=== PATIENT | male | born 1980 | race Caucasian/White ===

== ENCOUNTER 2020-08-29 08:48 | Emergency (ER) | payer OTHER, SELFPAY ==
[2020-08-29 08:49] VITALS: BP 130/90; PULSE 71; RESP 16; TEMP 36.8; O2SAT 100; BMI 23.6
--- NOTE | 2020-08-29 09:13 | EDS_ITS ---
HPI History of Present Illness Chief Complaint: Abd Pain Informant: patient Onset/Context/Timing Onset: Month(s) Current Severity: Mild Maximum Severity: Moderate Narrative Narrative: Patient presents with epigastric abdominal pain that has been ongoing for the last year. He states is gotten worse of the past couple of weeks. He does feel that there is a soft tissue mass in the upper abdomen is actually scheduled to be removed in early September. He thinks this is related. He does describe a burning sensation but no reflux up into his chest. Patient states has been taking some natural medication as well as some acid reducers. He denies vomiting or diarrhea. No fever or chills. He has never had prior abdominal surgery. PFSH PFSH no medical history Home Medications tramadol 50 mg PO Q8H PRN #14 tab 08/29/20 [Rx Last Taken Unknown] Allergy/AdvReac Type Severity Reaction Status Date / Time No Known Allergies Allergy Verified 08/29/20 08:49 Social History Smoking Status: Never smoker ROS ROS ED Constitutional Constitutional ED: Denies chills or fever(s) Eyes Eyes: Denies change in vision ENT ENT ED: Denies sore throat Cardiovascular Cardiovascular: Denies chest pain Respiratory/Chest Respiratory/Chest: Denies cough or dyspnea Gastrointestinal Gastrointestinal: Reports abdominal pain; Denies diarrhea, nausea or vomiting Genitourinary Genitourinary ED: Denies dysuria Musculoskeletal Musculoskeletal: Denies back pain Integumentary Denies rash Neurologic Neurologic: Denies headache(s) or weakness Psychiatric Psychiatric: Denies anxiety or depression Endocrine Endocrinology: Denies polydipsia or polyuria Allergic/Immunologic Allergic/Immunologic ED: Denies urticaria EXAM Physical Exam Const Vital Signs: 08/29/20 08:49 08/29/20 10:03 Temperature 98.3 F Temperature Source Temporal Pulse Rate 71 Respiratory Rate 16 Blood Pressure 130/90 H 110/83 H Blood Pressure Mean 103 92 Pulse Ox 100 100 Oxygen Delivery Method Room Air Room Air Positive well nourished and well developed General Appearance ED: well developed HEENT Reports normocephalic and head/scalp atraumatic Eyes PERRL and EOMs intact bilaterally Neck supple Chest Wall inspection of chest normal and palpation of chest normal Resp normal respiratory effort and clear to auscultation bilaterally Cardio regular rate and regular rhythm GI normal to inspection, nondistended, normoactive bowel sounds GI Narrative: Patient has a superficial soft tissue mass in the epigastric area that is slightly tender. This is not consistent with hernia. Palpation: soft and tender other (Mild epigastric tenderness to palpation. No guarding or rebound.) Extremity normal to inspection Neuro oriented x3 and no sensory deficits noted Sensorium / Orientation: alert Motor Exam: strength 5/5 throughout Psych mental status grossly normal Skin no rashes or lesions noted MDM MDM MDM Narrative Medical decision making narrative: Patient was given Toradol and Protonix for pain. Lab work is obtained. Lab Data Labs: Laboratory Results - last 24 hr 08/29/20 08/29/20 09:00 09:00 WBC 4.7 RBC 4.56 L Hgb 14.7 Hct 42.1 MCV 92.3 MCH 32.2 H MCHC 34.9 RDW Std Deviation 38.9 RDW Coeff of [place] 11.5 L Plt Count 327 MPV 9.6 Immature Gran % (Auto) 0.200 Neut % (Auto) 47.0 Lymph % (Auto) 39.8 [place] % (Auto) 7.7 Eos % (Auto) 4.7 Baso % (Auto) 0.6 Absolute Neuts (auto) 2.2 Absolute Lymphs (auto) 1.85 Nucleated RBC % 0 Sodium 139 Potassium 3.9 Chloride 107 Carbon Dioxide 30.0 Anion Gap 2 L BUN 13 Creatinine 0.96 Estim Creat Clear Calc 101.26 Est GFR (MDRD) Af Amer 111 Est GFR (MDRD) Non-Af 91 BUN/Creatinine Ratio 13.5 Glucose 94 Calcium 9.0 Total Bilirubin 0.60 Direct Bilirubin 0.12 AST 16 ALT 20 Alkaline Phosphatase 63 Total Protein 7.8 Albumin 4.0 Globulin 3.8 Lipase 105 Treatment and Re-Evaluation Comments:: On repeat evaluation patient now states he feels short of breath. Sats are in the high 90s. Portable chest x-ray is obtained and unremarkable per my interpretation. Patient is scheduled to have the soft tissue mass removed on September 15. He states that he does not want a wait that long. I offered to give him a referral to our surgeon on-call to see if he might be able to be seen any quicker. Patient be given a short course of tramadol to help with pain. Discharge Plan Triage Chief Complaint: Abd Pain ED Provider: Kaela Marmolejo Dx/Rx/DC Orders Clinical Impression: Abdominal pain Instructions: ED Pain, Acute, Uncertain Cause Prescriptions: New tramadol 50 mg tablet 50 mg PO Q8H PRN (Reason: pain) Qty: 14 RF: 0 Primary Care Provider: Michelle García Referrals: Gui Contreras MD [STAFF PHYSICIAN] - As soon as possible Michelle García PA [Primary Care Provider] - As soon as possible Disposition Disposition: Home, Self Care
[2020-08-29 09:38] LABS: Absolute Lymphocyte Count 1.85 X10^3/uL (0.83-4.51); Absolute Neutrophil Count 2.2 X10^3/uL (2.0-7.7); Basophil# 0.03 X10^3/uL; Basophil% 0.6 % (0-1); Eosinophil# 0.22 X10^3/uL; Eosinophils% 4.7 % (0-5); Hematocrit 42.1 % (40-54); Hemoglobin 14.7 g/dL (13.0-16.5); Lymphocyte # 1.85 X10^3/ul (0.83-4.51); Lymphocyte % 39.8 % (19-41); Mean Corp Hgb Conc 34.9 g/dL (32-36); Mean Corpuscular Hgb 32.2 pg (27.0-32.0); Mean Corpuscular Volume 92.3 fL (80-94); Mean Platelet Vol. 9.6 fl (6.2-12.0); Monocyte# 0.36 X10^3/uL; Monocyte% 7.7 % (0-10); NRBC Flagged by Analyzer 0 % (0-5); Neutrophil # 2.18 X10^3/uL (2.7-7.7); Platelet Count 327 K/mm3 (150-450); RBC Distribution Width CV 11.5 % (11.6-14.6); RBC Distribution Width SD 38.9 fl (35.1-43.9); Red Blood Count 4.56 M/mm3 (4.6-6.2); White Blood Count 4.7 K/mm3 (4.4-11.0)
[2020-08-29 09:56] LABS: AST(SGOT) 16 U/L (15-37); Alanine Aminotransfer ALT/SGPT 20 U/L (16-61); Alkaline Phosphatase 63 U/L (45-117); Anion Gap 2 (5-15); BUN 13 mg/dL (7-18); BUN/Creat Ratio 13.5 RATIO (10-20); Bilirubin, Direct 0.12 mg/dL (0.00-0.30); Chloride 107 mmol/L (98-107); Creatinine, Serum 0.96 mg/dL (0.70-1.30); EST Glomerular Filtration Rate 91 mL/min (>60); Est Glom Filt Rate - Afr Amer 111 mL/min (>60); Estimated Creatinine Clearance 101.26 ml/min; Globulin 3.8 g/dL (2.2-4.2); Glucose 94 mg/dL (74-106); Lipase 105 U/L (73-393); Potassium 3.9 mmol/L (3.5-5.1); Protein, Total 7.8 g/dL (6.4-8.2); Sodium Level 139 mmol/L (136-145)
[2020-08-29] MEDS: Ketorolac 30 MG/ML Syringe IV (09:57)
[2020-08-29] MEDS: 0.9% Normal Saline 1,000 ML 150 ML IV (09:57)
[2020-08-29 10:03] VITALS: BP 110/83; O2SAT 100
--- NOTE | 2020-08-29 10:52 | RAD_ITS ---
INDICATION: sob EXAMINATION/TECHNIQUE: X-RAY - XR Chest 1 View COMPARISON: None. FINDINGS: LINES/DEVICES: None. LUNGS: No consolidation, edema or effusion. No pneumothorax. MEDIASTINUM AND CARDIOVASCULAR STRUCTURES: Cardiac silhouette not enlarged. Central airways and mediastinal contour are unremarkable. BONES AND SOFT TISSUES: A healed fracture of the right clavicle is noted. No additional acute fracture or dislocation is seen. Mild degenerative changes are noted in the shoulders. RAD/Chest 1 View (Portable) IMPRESSION: No radiographic evidence of acute cardiopulmonary disease. Electronically Signed: Valentin White MD at 11:23 EDT Tel , Service support ,
[2020-08-29 11:33] VITALS: BP 118/80; O2SAT 98
== END 2020-08-29 11:36 | disposition home or self-care (01) ==
PROVIDERS: Emergency Provider Emergency Medicine
DX: R10.13 Epigastric pain (principal); R19.06 Epigastric swelling, mass or lump; R06.02 Shortness of breath
CPT/HCPCS: 71045; 80048; 80076; 83690; 85025; 96365; 96366; 96375; 99283; J7030; A4216

== ENCOUNTER 2022-08-09 08:06 | Emergency (ER) | payer OTHER, SELFPAY ==
[2022-08-09 08:07] VITALS: BP 136/102; PULSE 69; RESP 15; TEMP 36.3; O2SAT 98; BMI 26.6
--- NOTE | 2022-08-09 08:20 | CT_ITS ---
STUDY: CT ABDOMEN AND PELVIS WITH CONTRAST REASON FOR EXAM: Male, 42 years old. 2 month history of intermittent abdominal pain. RADIATION DOSAGE (If Supplied By Facility): CTDIvol = ( 14.97 ) mGy, DLP = ( 926.99 ) mGycm TECHNIQUE: Transaxial images were obtained from the dome of the diaphragm to the symphysis pubis with oral contrast. Oral and amp; IV Gastrografin and amp; 100mL Isovue-300 was administered. Sagittal and coronal images were reconstructed. Individualized dose optimization techniques were used for this CT. COMPARISON: None. FINDINGS: Minimal degree of bibasilar atelectasis. The visualized portions of the heart are within normal limits. Normal liver. Normal gallbladder and extrahepatic biliary system. Normal spleen. Normal pancreas. Normal bilateral adrenal glands. Normal right kidney. Normal left kidney. Normal visualized stomach. Normal small intestine. Normal colon. The appendix is visualized and appears normal. Normal abdominal aorta. Normal inferior vena cava. Normal retroperitoneum. Normal urinary bladder. There is a small umbilical hernia containing fat. Small left inguinal hernia containing fat. There are mild degenerative changes of the visualized lumbar spine. CT/Abdomen/Pelvis WITH Contrast IMPRESSION: No acute abnormality is seen. Electronically Signed: Raymond Cameron MD at 10:38 EDT ,
--- NOTE | 2022-08-09 08:21 | EX.ED.DYSGE1 ---
HPI History of Present Illness Chief Complaint: Abd Pain Informant: patient and spouse/S.O. Onset/Context/Timing Onset: Month(s) Timing: Intermittent Current Severity: Mild Narrative Narrative: Patient presents secondary to intermittent abdominal pain for the past couple of months. He describes a tightness across his upper abdomen that sometimes radiates up into his chest. He is unsure if is related to food. No fever or chills. No nausea or vomiting. He report occasional diarrhea. When asked what changed today that made the patient come to emergency room he states he was just tired of the pain. He does an appointment to see his doctor later this month. [facility] Medical History Fatty tumor Home Medications tramadol 50 mg tablet 50 mg PO Q8H PRN pain #14 tabs 08/29/20 [Rx Last Taken Unknown] lorazepam 0.5 mg tablet (Ativan) 0.5 mg PO BID PRN anxiety #10 tabs 08/09/22 [Rx Last Taken Unknown] Allergy/AdvReac Type Severity Reaction Status Date / Time No Known Allergies Allergy Verified 08/09/22 08:10 Surgical History History of surgery on lower extremity Social History Smoking Status: Never smoker ROS ROS ED Constitutional Constitutional ED: Denies chills or fever(s) Eyes Eyes: Denies discharge from eye(s) ENT ENT ED: Denies discharge from eye(s), rhinorrhea or sore throat Cardiovascular Cardiovascular: Denies chest pain Respiratory/Chest Respiratory/Chest: Denies cough or dyspnea Gastrointestinal Gastrointestinal: Reports abdominal pain and diarrhea; Denies nausea or vomiting Genitourinary Genitourinary ED: Denies dysuria Musculoskeletal Musculoskeletal: Denies back pain or extremity pain Integumentary Denies Abrasions or rash Neurologic Neurologic: Denies headache(s) or weakness Psychiatric Psychiatric: Denies anxiety or depression Allergic/Immunologic Allergic/Immunologic ED: Denies lip swelling or urticaria EXAM Physical Exam Const Vital Signs: 08/09/22 08:07 Temperature 97.3 F L Temperature Source Temporal Pulse Rate 69 Respiratory Rate 15 Blood Pressure 136/102 H Blood Pressure Mean 113 Pulse Ox 98 Oxygen Delivery Method Room Air Positive well nourished and well developed General Appearance ED: well developed HEENT Reports normocephalic and head/scalp atraumatic Eyes PERRL and EOMs intact bilaterally Neck supple Chest Wall inspection of chest normal and palpation of chest normal Resp normal respiratory effort and clear to auscultation bilaterally Cardio regular rate and regular rhythm GI normal to inspection, nondistended, normoactive bowel sounds and non-tender Palpation: soft Back/Spine no CVA tenderness Extremity normal to inspection Neuro oriented x3 and no sensory deficits noted Sensorium / Orientation: alert Motor Exam: strength 5/5 throughout Psych mental status grossly normal Skin no rashes or lesions noted MDM MDM MDM Narrative Medical decision making narrative: Labwork obtained to evaluate for leukocytosis, anemia, and electrolyte derangement. Urinalysis obtained to evaluate for infection/hematuria. CT scan of the abdomen pelvis obtained with contrast. Lab Data Attestation: I reviewed the patient's lab results. Labs: Laboratory Results - last 24 hr 08/09/22 08:20 WBC 3.9 L RBC 4.75 Hgb 14.7 Hct 43.4 MCV 91.4 MCH 30.9 MCHC 33.9 RDW Std Deviation 38.9 RDW Coeff of [place] 11.5 L Plt Count 334 MPV 9.8 Immature Gran % (Auto) 0.300 Neut % (Auto) 42.6 L Lymph % (Auto) 41.6 H [place] % (Auto) 11.9 H Eos % (Auto) 2.8 Baso % (Auto) 0.8 Absolute Neuts (auto) 1.7 L Absolute Lymphs (auto) 1.61 Nucleated RBC % 0 Sodium 140 Potassium 3.6 Chloride 108 H Carbon Dioxide 27.0 Anion Gap 5 BUN 14 Creatinine 1.07 Estim Creat Clear Calc 89.02 Est GFR (MDRD) Af Amer 97 Est GFR (MDRD) Non-Af 80 BUN/Creatinine Ratio 13.1 Glucose 88 Calcium 9.4 Total Bilirubin 0.70 Direct Bilirubin 0.14 AST 22 ALT 25 Alkaline Phosphatase 63 Total Protein 7.8 Albumin 4.0 Globulin 3.8 Lipase 36 Urine Color Yellow Urine Clarity Clear Urine pH 7.0 Ur Specific [place] 1.010 Urine Protein Negative Urine Glucose (UA) Normal Urine Ketones Negative Urine Occult Blood Negative Urine Nitrite Negative Urine Bilirubin Negative Urine Urobilinogen Normal Ur Leukocyte Esterase Negative Urine RBC 0 SEEN Urine WBC 0 SEEN Ur Squamous Epith Cells 0 SEEN Urine Bacteria 0 SEEN Urine Mucus 0 SEEN Radiography Diagnostic Testing: Clinical Impression(s) from Imaging Studies Abdomen/Pelvis CT 08/09/22 08:20 IMPRESSION: No acute abnormality is seen. Electronically Signed: Raymond Cameron MD at 10:38 EDT , Treatment and Re-Evaluation :: CBC was a white count that is slightly low at 3.9. Chemistry studies unremarkable. LFTs and lipase normal. Urinalysis without sign of infection or hematuria. CT scan abdomen pelvis read as normal. On repeat evaluation patient is asking for something for anxiety. I will give him a dose of Ativan here and write a short prescription for home. I will send off a Lyme titer screen as this was one of his concerns. He has an appointment with his primary care physician later this month and I advised him that the results will be available by then. Obviously if his test returns positive he will receive a phone call for appropriate testing. Discharge Plan Triage Chief Complaint: Abd Pain ED Provider: Kaela Marmolejo Dx/Rx/DC Orders Clinical Impression: Anxiety, Abdominal pain Instructions: ED Anxiety Reaction, ED Abdominal Pain Unkn Cause Male... Prescriptions: New lorazepam [Ativan] 0.5 mg tablet 0.5 mg PO BID PRN (Reason: anxiety) Qty: 10 0RF No Action tramadol 50 mg tablet 50 mg PO Q8H PRN (Reason: pain) Qty: 14 0RF Primary Care Provider: Michelle García Referrals: Michelle García PA [Primary Care Provider] - Keep [facility] appointment Disposition Disposition: Home, Self Care
[2022-08-09 08:31] LABS: Bacteria 0 SEEN /hpf (None Seen); Mucous, Urine 0 SEEN /hpf (<or=2+); Red Blood Cells-Urine 0 SEEN /hpf (0-5); Squamous Epithelial Cells - UA 0 SEEN /hpf (0-5); White Blood Cells 0 SEEN /hpf (0-5)
[2022-08-09 08:34] LABS: Absolute Lymphocyte Count 1.61 X10^3/uL (0.83-4.51); Absolute Neutrophil Count 1.7 X10^3/uL (2.0-7.7); Basophil# 0.03 X10^3/uL; Basophil% 0.8 % (0-1); Eosinophil# 0.11 X10^3/uL; Eosinophils% 2.8 % (0-5); Hematocrit 43.4 % (40-54); Hemoglobin 14.7 g/dL (13.0-16.5); Lymphocyte # 1.61 X10^3/ul (0.83-4.51); Lymphocyte % 41.6 % (19-41); Mean Corp Hgb Conc 33.9 g/dL (32-36); Mean Corpuscular Hgb 30.9 pg (27.0-32.0); Mean Corpuscular Volume 91.4 fL (80-94); Mean Platelet Vol. 9.8 fl (6.2-12.0); Monocyte# 0.46 X10^3/uL; Monocyte% 11.9 % (0-10); NRBC Flagged by Analyzer 0 % (0-5); Neutrophil # 1.65 X10^3/uL (2.7-7.7); Neutrophil % 42.6 % (47-70); Platelet Count 334 K/mm3 (150-450); RBC Distribution Width CV 11.5 % (11.6-14.6); RBC Distribution Width SD 38.9 fl (35.1-43.9); Red Blood Count 4.75 M/mm3 (4.6-6.2); White Blood Count 3.9 K/mm3 (4.4-11.0)
[2022-08-09 08:35] LABS: Color, Urine Yellow (Yellow); Glucose, Dipstick Normal (Normal); Ketone-Dipstick Negative (Negative); Leukocyte Esterase-Dipstick Negative /ul (Negative); Nitrite-Dipstick Negative (Negative); Occult Blood-Urine Negative /ul (Negative); Protein-Dipstick Negative (Negative); Urine Bilirubin Dipstick Negative (Negative); Urine Clarity Clear (Clear); Urine Urobilinogen Normal (Normal)
[2022-08-09 08:49] LABS: AST(SGOT) 22 U/L (15-37); Alanine Aminotransfer ALT/SGPT 25 U/L (16-61); Alkaline Phosphatase 63 U/L (45-117); Anion Gap 5 (5-15); BUN 14 mg/dL (7-18); BUN/Creat Ratio 13.1 RATIO (10-20); Bilirubin, Direct 0.14 mg/dL (0.00-0.30); Calcium,Total 9.4 mg/dL (8.5-10.1); Chloride 108 mmol/L (98-107); Creatinine, Serum 1.07 mg/dL (0.70-1.30); EST Glomerular Filtration Rate 80 mL/min (>60); Est Glom Filt Rate - Afr Amer 97 mL/min (>60); Estimated Creatinine Clearance 89.02 ml/min; Globulin 3.8 g/dL (2.2-4.2); Glucose 88 mg/dL (74-106); Lipase 36 U/L (13-75); Potassium 3.6 mmol/L (3.5-5.1); Protein, Total 7.8 g/dL (6.4-8.2); Sodium Level 140 mmol/L (136-145)
[2022-08-09] MEDS: LORazepam 1 MG Tablet PO (11:01)
[2022-08-09 11:08] VITALS: PULSE 71; RESP 14; O2SAT 96
[2022-08-10 10:09] LABS: Lyme Scn Total Ab w/Rflx Negative (Negative)
== END 2022-08-09 11:08 | disposition home or self-care (01) ==
PROVIDERS: Emergency Provider Emergency Medicine; Visit Provider Emergency Medicine
DX: F41.9 Anxiety disorder, unspecified (principal); R10.10 Upper abdominal pain, unspecified; R19.7 Diarrhea, unspecified; Z79.899 Other long term (current) drug therapy
CPT/HCPCS: 74177; 80048; 80076; 81001; 83690; 85025; 86618; 99283; Q9967; A4216

== ENCOUNTER 2022-08-27 10:06 | Emergency (ER) | payer OTHER, SELFPAY ==
[2022-08-27 10:09] VITALS: BP 136/93; PULSE 71; RESP 12; TEMP 36.3; O2SAT 95; BMI 27.8
--- NOTE | 2022-08-27 10:34 | EX.ED.DYSGE1 ---
HPI History of Present Illness Chief Complaint: General Illness Detail of Chief Complaint: Generalized discomfort. Informant: patient Onset/Context/Timing Onset: Month(s) Context: Gradual Onset Timing: Intermittent Current Severity: Mild Maximum Severity: Mild Narrative Narrative: 41-year-old [place] male seen just has not felt well for the last several months maybe even a year. He was seen here 2 to 3 weeks ago and had normal work-up done at that time with unremarkable labs. He said he even had a test for Lyme disease which was negative. He denies any fever or chills. Denies any rashes. Says has been eating and drinking well. He has been peeing and moving his bowels normally. Prior similar symptoms: Yes Recent Illness/Hospitalization: No PFSH PFSH Medical History Fatty tumor Home Medications tramadol 50 mg tablet 50 mg PO Q8H PRN pain #14 tabs 08/29/20 [Rx Last Taken Unknown] lorazepam 0.5 mg tablet (Ativan) 0.5 mg PO BID PRN anxiety #10 tabs 08/09/22 [Rx Last Taken Unknown] lorazepam 0.5 mg tablet (Ativan) 0.5 mg PO BID PRN anxiety 10 days #20 tabs 08/27/22 [Rx Last Taken Unknown] Allergy/AdvReac Type Severity Reaction Status Date / Time No Known Allergies Allergy Verified 08/27/22 10:09 Surgical History History of surgery on lower extremity Social History Smoking Status: Never smoker ROS ROS ED Review of Systems ROS Unobtainable: Denies due to encephalopathy Constitutional Constitutional ED: Denies chills or fever(s) Eyes Eyes: Denies blurry vision ENT ENT ED: Denies ear pain Cardiovascular Cardiovascular: Denies chest pain Respiratory/Chest Respiratory/Chest: Denies cough or dyspnea Gastrointestinal Gastrointestinal: Denies abdominal pain or constipation Genitourinary Genitourinary ED: Denies dysuria or hematuria Musculoskeletal Musculoskeletal: Reports myalgias; Denies arthralgias Integumentary Denies abscess Neurologic Neurologic: Denies headache(s) Psychiatric Psychiatric: Denies anxiety Endocrine Endocrinology: Denies cold intolerance Hematologic/Lymphatic Hematologic/Lymphatic: Reports none Allergic/Immunologic Allergic/Immunologic ED: Denies mouth swelling, tongue swelling or urticaria EXAM Physical Exam Narrative Exam Narrative: well-appearing 42-year-old male. Vital signs stable afebrile. Does not look septic or toxic. No distress. No one is present in the room. HEENT exam normal. Neck nontender no lymphadenopathy. Lungs clear. Heart regular rhythm no murmur. Chest wall nontender. Abdomen soft nontender. Back nontender. Skin unremarkable no rashes. Moving all 4 extremities. Nontender. No edema. Full range of motion. Neurologically he is awake and alert. Const Vital Signs: 08/27/22 10:09 Temperature 97.3 F L Temperature Source Temporal Pulse Rate 71 Respiratory Rate 12 Blood Pressure 136/93 H Blood Pressure Mean 107 Pulse Ox 95 Oxygen Delivery Method Room Air Positive well nourished and well developed; Negative for obese, cachectic, contractures or unkempt General Appearance ED: well developed and NAD; Negative for unkempt, cachectic, contractures, cyanotic, diaphoretic or pallor Nutritional Appearance: Negative for cachectic or obese HEENT Reports moist mucous membranes; Denies dry mucous membranes Negative for trauma or tenderness Mouth ED: No dry mucous membranes Mouth: No dry mucous membranes Eyes PERRL and EOMs intact bilaterally General Eye ED: Negative for pale conjunctiva, scleral icterus or other Neck no lymphadenopathy, supple and no JVD General: Negative for tenderness Lymph Lymphatic: Negative for other Chest Wall inspection of chest normal and palpation of chest normal Resp normal respiratory effort and clear to auscultation bilaterally Effort and Inspection: Negative for retractions Auscultation: Negative for rales, rhonchi or wheezes Cardio regular rate, regular rhythm, S1 normal heart sound, S2 normal heart sound and no murmurs GI normal to inspection, nondistended, normoactive bowel sounds, non-tender, non-distended and no masses Inspection: Negative for abdominal distention Auscultation: normoactive bowel sounds Palpation: soft; Negative for tender or guarding Back/Spine no CVA tenderness General Back: Negative for CVA tenderness Cervical Spine: Negative for cervical spine tenderness Thoracic Spine / Upper Back: Negative for thoracic spinal tenderness Lumbar Spine / Lower Back: Negative for lumbar spinal tenderness Extremity normal to inspection General Extremety ED: Negative for edema or tenderness General Extremity: Negative for edema Neuro oriented x3 and CN's II-XII intact bilaterally Sensorium / Orientation: alert; Negative for orientation impaired, lethargic or stuporous Motor Exam: strength 5/5 throughout Psych mental status grossly normal Appearance: Negative for unkempt Attitude: No agitated Mood & Affect: Negative for depressed, anxious or tearful Skin no rashes or lesions noted, no wounds and skin turgor normal General Skin Exam: Negative for elasticity normal, jaundice or pallor Lesions: No lesion noted Rashes: No rashes noted Trauma: Negative for abrasion Wounds: Negative for wounds noted MDM MDM MDM Narrative Medical decision making narrative: 2-year-old male with a completely normal exam. He was seen and evaluated 2 to 3 weeks ago and had normal labs at that time. I do not think labs to be any advantage to him today. This could be from anxiety or depression. He was written for prescription lorazepam that he said helped with his anxiety. His appointment to see a primary care physician in the next week or so. He will be given another prescription of lorazepam and discharged home. I do not think he needs any work-up or imaging today. History & Record Review Discussion w/independent historian: Patient Additional record(s) reviewed:: Prior inpatient record, Prior outpatient record, Prior ED visit and Prior labs Discharge Plan Triage Chief Complaint: General Illness ED Provider: Jossue Redmond Dx/Rx/DC Orders Clinical Impression: Myalgia, Anxiety Instructions: ED Anxiety Reaction, ED Myalgias Prescriptions: New lorazepam [Ativan] 0.5 mg tablet 0.5 mg PO BID PRN (Reason: anxiety) 10 Days Qty: 20 0RF No Action tramadol 50 mg tablet 50 mg PO Q8H PRN (Reason: pain) Qty: 14 0RF lorazepam [Ativan] 0.5 mg tablet 0.5 mg PO BID PRN (Reason: anxiety) Qty: 10 0RF Primary Care Provider: Kaitlynn Rodriguez Referrals: Kaitlynn Rodriguez MD [Primary Care Provider] - Keep Robert appointment Activity Restrictions/Additional Instructions: Follow-up your primary care physician.
== END 2022-08-27 11:00 | disposition home or self-care (01) ==
LOC: ED 10:39
PROVIDERS: Emergency Provider Emergency Medicine; PCP Internal Medicine; Visit Provider Emergency Medicine
DX: M79.10 Myalgia, unspecified site (principal); F41.9 Anxiety disorder, unspecified; Z79.899 Other long term (current) drug therapy
CPT/HCPCS: 99282